=== PATIENT | female | born 1985 | race Caucasian/White ===

== ENCOUNTER 2023-05-14 22:13 | Emergency (ER) | payer MEDICAID ==
[~2023-05-14] VITALS: Ht 170.2 cm; Wt 82.0 kg
[2023-05-14 22:14] VITALS: O2SAT 99
[2023-05-14 22:57] LABS: BASOPHILS % 0.6 % (0.0-2.0); EOSINOPHILS % 0.8 % (0.0-5.0); HEMOGLOBIN. 13.4 g/dL (12.0-16.0); LYMPHOCYTES % 48.1 % (20.0-50.0); MEAN CORPUSCULAR HEMOGLOBIN 30.4 pg (28.0-32.0); MEAN CORPUSCULAR HGB CONC 35.2 g/dL (31.0-37.0); MEAN CORPUSCULAR VOLUME 86.3 fL (81.0-99.0); MONOCYTES % 6.7 % (2.0-8.0); NEUTROPHILS % 43.8 % (40.0-76.0); PLATELET 317 x1000/uL (130-400); RED CELL DISTRIBUTION WIDTH 13.4 % (11.6-14.6); WHITE BLOOD COUNT 11.7 x1000/uL (4.5-11.0)
[2023-05-14] MEDS ORDERED: NALOXONE HCL 0.4 MG/ML 1ML VIAL IV ONE (23:00)
[2023-05-14] MEDS ORDERED: SODIUM CHLORIDE 0.9% 1,000 ML IV ONE (23:00)
[2023-05-14] MEDS ORDERED: ASPIRIN 325MG EC TABLET PO ONE (23:00)
[2023-05-14 23:04] LABS: *AMPHETAMINES SCREEN URINE NEGATIVE (NEGATIVE); *BARBITURATES SCREEN URINE NEGATIVE (NEGATIVE); *BENZODIAZEPINES SCREEN URINE NEGATIVE (NEGATIVE); *COCAINE SCREEN URINE NEGATIVE (NEGATIVE); CANNABINOID URINE SCREEN NEGATIVE (NEGATIVE); ECSTASY MDMA SCREEN URINE NEGATIVE (NEGATIVE); METHADONE URINE SCREEN NEGATIVE (NEGATIVE); OPIATES URINE SCREEN NEGATIVE (NEGATIVE); PHENCYCLIDINE URINE SCREEN NEGATIVE (NEGATIVE)
[2023-05-14 23:06] LABS: CHLORIDE 109 mEq/L (98-107); INDEX HEMOLYSI 4 (1-3); INDEX ICTERIC 1 (1-4); INDEX LIPEMIC 3 (1-3); SODIUM 137 mEq/L (136-145)
[2023-05-14 23:11] LABS: POTASSIUM 3.4 mEq/L (3.5-5.1)
[2023-05-14 23:16] LABS: ALBUMIN 3.7 g/dL (3.4-5.0); BILIRUBIN TOTAL 0.3 mg/dL (0.1-1.0); CALCIUM 7.7 mg/dL (8.5-10.1); CARBON DIOXIDE 21 mEq/L (21-32); CREATININE 0.8 mg/dL (0.6-1.3); GLUCOSE 162 mg/dL (70-105); NT PRO B-TYPE NATRIURETIC PEP 17 pg/mL (5-125); PROTEIN TOTAL 7.1 g/dL (6.0-8.3); TROPONIN I HIGH SENSITIVITY 5 ng/L (<54); UREA NITROGEN BLOOD 13 mg/dL (7-21)
[2023-05-14 23:37] LABS: ALANINE AMINOTRANSFERASE 34 IU/L (13-61); ASPARTATE AMINOTRANSFERASE 29 IU/L (15-37)
[2023-05-15] MEDS ORDERED: ONDA4TAB50 MT (03:33)
[2023-05-15 03:40] VITALS: BP 110/68; PULSE 70; RESP 12; TEMP 98.4
== END 2023-05-15 03:41 | disposition home or self-care (01) ==
LOC: ER 22:13
DX: F10.129 Alcohol abuse with intoxication, unspecified (principal); F17.200 Nicotine dependence, unspecified, uncomplicated; Y90.6 Blood alcohol level of 120-199 mg/100 ml
CPT/HCPCS: 80053; 80305; 80320; 83880; 85025; 85379; 84484; 36415; 71045; 93005; 96361; 96374; 99285; J2310; J7030; 99283; G0480